=== PATIENT | female | born 1960 | race Caucasian/White ===

== ENCOUNTER 2017-12-26 15:25 | Emergency (ER) | payer OTHER, SELFPAY ==
[2017-12-26 15:30] VITALS: BP 136/74; PULSE 69; RESP 16; TEMP 36.5; O2SAT 100
--- NOTE | 2017-12-26 17:26 | W.ED.GENAD ---
Discharge Plan Disposition Patient Disposition: HOME Condition: Good Discharge Details Chief Complaint: Orthopedic Clinical Impression: Muscle strain of left shoulder Primary Care Provider: Iraj Moura ED Provider: Edil Grimes Home Meds and New Rx's Prescriptions: New ibuprofen [IBU] 600 mg tablet 600 mg PO QID PRN (Reason: pain) Qty: 20 RF: 0 cyclobenzaprine 5 mg tablet 5 mg PO TID PRN (Reason: muscle spasm) Qty: 10 RF: 0 Discontinued ibuprofen [Advil Liqui-Gel] 200 MG capsule 400 mg PO PRN PRNRF: 0 No Action levothyroxine [Synthroid] 125 MCG tablet 125 mcg PO HS RF: 0 Discharge Instructions Instructions: Muscle Strain (ED), RICE Therapy (ED) Additional Instructions: Feel free to return the emergency department for any new or worsening symptoms otherwise perform gentle range of motion activities over the weekend, use medication as prescribed, and slowly advance activity as tolerated. If not improving over the next 2 weeks please follow-up with orthopedist for reassessment Referrals: Asaf Jacobson MD [ [facility] STAFF PHYSICIAN] - Vamshi Jacob MD [ [facility] STAFF PHYSICIAN] - Kel Noriega MD [ [facility] STAFF PHYSICIAN] - Discharge Data Discharge Date/Time-TO BE ENTERED AT DEPARTURE: 12/26/17 17:43 Medical Decision Making Patient presenting to the emergency department for chief complaint of left shoulder pain. 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 She states that afterwards she had significant reduction of range of motion and painful range of motion of the left shoulder. Physical exam shows mild tenderness to the anterior aspect of the shoulder and upper chest wall and some active painful range of motion but passive range of motion is for the most part painless and only has some reduction in overhead abduction of the shoulder. I do not feel that patient requires any radiological imaging at this time and highly suspicious of the shoulder strain. Patient was placed upon Flexeril for any muscular spasms that she may have and ibuprofen and encouraged to rest over the next couple days and slowly advance activity as tolerated. Patient was encouraged to continue to do gentle range of motion activities. After discussion of diagnosis and plan of care patient has no further needs, questions, or concerns and states clear understanding to return to the emergency department for any worsening symptoms. HPI General Mode of arrival: ambulatory. Date/Time Provider Initiated Documentation: 12/26/17 15:49. Limitations to Documentation: no limitations. Information obtained by: patient and RN notes reviewed. History of Present Illness 57 year old F presents to the emergency department with the chief complaint of left arm, described as moderate, with intensity rated at 8. Quality is described as aching, and is localized to the left and upper extremity. Patient started experiencing this hour(s) (3) and it has been constant. No relieving factors improve symptom(s), Movement worsens symptoms . Patient notes no other symptoms.. Patient did receive the following treatments prior to arrival, NSAID Related Data Home Medications Medication Instructions Recorded Confirmed levothyroxine [Synthroid] 125 mcg PO HS tab-cap 06/25/16 12/26/17 cyclobenzaprine 5 mg PO TID PRN #10 tab 12/26/17 ibuprofen [IBU] 600 mg PO QID PRN #20 tab 12/26/17 Previous Rx's Medication Instructions Recorded cyclobenzaprine 5 mg PO TID PRN #10 tab 12/26/17 ibuprofen [IBU] 600 mg PO QID PRN #20 tab 12/26/17 Allergies Allergy/AdvReac Type Severity Reaction Status Date / Time No Known Drug Allergies Allergy Unverified 12/26/17 15:34 General Stated Complaint: Orthopedic STEPHEN: 4 Review of Systems Cardiovascular Denies chest pain and Denies dyspnea Respiratory Denies dyspnea Musculoskeletal Reports as per HPI, Reports myalgias and Reports arthralgias Integumentary/Breasts Denies rash Neurologic Denies sensory deficit PFS Social History Smoking/Tobacco Use Status: Former Tobacco Use Surgical History Cholecystectomy Exam Const General: cooperative, healthy appearing and no acute distress Orientation: alert, awake and oriented x3 Resp Effort & Inspection: normal respiratory effort and able to speak in complete sentences Cardio Rate: regular rate Rhythm: regular rhythm Extrem General: normal exam except as noted Left upper extremity: full ROM, normal capillary refill, shoulder/upper arm Details: tenderness Location: other (Anterior soft tissue) and abnormal ROM Details: pain with active ROM Details: in ABduction and in extension and with range as follows (Full); no pain with passive ROM, elbow/forearm Details: normal to inspection, wrist Details: normal to inspection and hand Details: normal to inspection; no edema and joint enlargement noted Course Vital Signs Temperature 36.5 C 12/26/17 15:30 Pulse 69 12/26/17 15:30 Respiratory Rate 16 12/26/17 15:30 Blood Pressure 136/74 12/26/17 15:30 Pulse Oximetry 100 12/26/17 15:30 Temperature 36.5 C 12/26/17 15:30 Temperature Source Skin 12/26/17 15:30 Pulse 69 12/26/17 15:30 Respiratory Rate 16 12/26/17 15:30 Respiratory Effort Non-Labored 12/26/17 15:33 Blood Pressure 136/74 12/26/17 15:30 Pulse Oximetry 100 12/26/17 15:30 Pain Level 8 12/26/17 15:30
--- NOTE | 2017-12-26 17:29 | ED.GENADUL_ITS ---
Discharge Plan Disposition Patient Disposition: HOME Condition: Good Discharge Details Chief Complaint: Orthopedic Clinical Impression: Muscle strain of left shoulder Primary Care Provider: Iraj Moura ED Provider: Edil Grimes Home Meds and New Rx's Prescriptions: New ibuprofen [IBU] 600 mg tablet 600 mg PO QID PRN (Reason: pain) Qty: 20 RF: 0 cyclobenzaprine 5 mg tablet 5 mg PO TID PRN (Reason: muscle spasm) Qty: 10 RF: 0 Discontinued ibuprofen [Advil Liqui-Gel] 200 MG capsule 400 mg PO PRN PRNRF: 0 No Action levothyroxine [Synthroid] 125 MCG tablet 125 mcg PO HS RF: 0 Discharge Instructions Instructions: Muscle Strain (ED), RICE Therapy (ED) Additional Instructions: Feel free to return the emergency department for any new or worsening symptoms otherwise perform gentle range of motion activities over the weekend, use medication as prescribed, and slowly advance activity as tolerated. If not improving over the next 2 weeks please follow-up with orthopedist for reassessment Referrals: Asaf Jacobson MD [ [facility] STAFF PHYSICIAN] - Vamshi Jacob MD [ [facility] STAFF PHYSICIAN] - Kel Noriega MD [ [facility] STAFF PHYSICIAN] - Discharge Data Discharge Date/Time-TO BE ENTERED AT DEPARTURE: 12/26/17 17:43 Medical Decision Making Patient presenting to the emergency department for chief complaint of left shoulder pain. 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 She states that afterwards she had significant reduction of range of motion and painful range of motion of the left shoulder. Physical exam shows mild tenderness to the anterior aspect of the shoulder and upper chest wall and some active painful range of motion but passive range of motion is for the most part painless and only has some reduction in overhead abduction of the shoulder. I do not feel that patient requires any radiological imaging at this time and highly suspicious of the shoulder strain. Patient was placed upon Flexeril for any muscular spasms that she may have and ibuprofen and encouraged to rest over the next couple days and slowly advance activity as tolerated. Patient was encouraged to continue to do gentle range of motion activities. After discussion of diagnosis and plan of care patient has no further needs, questions , or concerns and states clear understanding to return to the emergency department for any worsening symptoms. HPI General Mode of arrival: ambulatory . Date/Time Provider Initiated Documentation: 12/26/17 15:49 . Limitations to Documentation: no limitations . Information obtained by: patient and RN notes reviewed . History of Present Illness 57 year old F presents to the emergency department with the chief complaint of left arm, described as moderate, with intensity rated at 8. Quality is described as aching, and is localized to the left and upper extremity. Patient started experiencing this hour(s) (3) and it has been constant. No relieving factors improve symptom(s), Movement worsens symptoms . Patient notes no other symptoms.. Patient did receive the following treatments prior to arrival, NSAID Related Data Home Medications Medication Instructions Recorded Confirmed levothyroxine [Synthroid] 125 mcg PO HS tab-cap 06/25/16 12/26/17 cyclobenzaprine 5 mg PO TID PRN #10 tab 12/26/17 ibuprofen [IBU] 600 mg PO QID PRN #20 tab 12/26/17 Previous Rx's Medication Instructions Recorded cyclobenzaprine 5 mg PO TID PRN #10 tab 12/26/17 ibuprofen [IBU] 600 mg PO QID PRN #20 tab 12/26/17 Allergies Allergy/AdvReac Type Severity Reaction Status Date / Time No Known Drug Allergies Allergy Unverified 12/26/17 15:34 General Stated Complaint: Orthopedic STEPHEN: 4 Review of Systems Cardiovascular Denies chest pain and Denies dyspnea Respiratory Denies dyspnea Musculoskeletal Reports as per HPI, Reports myalgias and Reports arthralgias Integumentary/Breasts Denies rash Neurologic Denies sensory deficit PFS Social History Smoking/Tobacco Use Status: Former Tobacco Use Surgical History Cholecystectomy Exam Const General: cooperative, healthy appearing and no acute distress Orientation: alert, awake and oriented x3 Resp Effort & Inspection: normal respiratory effort and able to speak in complete sentences Cardio Rate: regular rate Rhythm: regular rhythm Extrem General: normal exam except as noted Left upper extremity: full ROM, normal capillary refill, shoulder/upper arm Details: tenderness Location: other (Anterior soft tissue) and abnormal ROM Details: pain with active ROM Details: in ABduction and in extension and with range as follows (Full); no pain with passive ROM, elbow/forearm Details: normal to inspection, wrist Details: normal to inspection and hand Details: normal to inspection; no edema and joint enlargement noted Course Vital Signs Temperature 36.5 C 12/26/17 15:30 Pulse 69 12/26/17 15:30 Respiratory Rate 16 12/26/17 15:30 Blood Pressure 136/74 12/26/17 15:30 Pulse Oximetry 100 12/26/17 15:30 Temperature 36.5 C 12/26/17 15:30 Temperature Source Skin 12/26/17 15:30 Pulse 69 12/26/17 15:30 Respiratory Rate 16 12/26/17 15:30 Respiratory Effort Non-Labored 12/26/17 15:33 Blood Pressure 136/74 12/26/17 15:30 Pulse Oximetry 100 12/26/17 15:30 Pain Level 8 12/26/17 15:30
== END 2017-12-26 17:43 | disposition home or self-care (01) ==
LOC: ER 17:41
PROVIDERS: Emergency Provider Nurse Practitioner Family; PCP Internal Medicine
DX: S46.012A Strain of muscle(s) and tendon(s) of the rotator cuff of left shoulder, initial encounter (principal); X58.XXXA Exposure to other specified factors, initial encounter
CPT/HCPCS: 99283

== ENCOUNTER 2018-02-27 18:16 | Outpatient (REF) | payer OTHER, SELFPAY ==
[2018-02-27 19:21] LABS: FREE T4 0.76 ng/dL (0.76-1.46); TSH 2.09 uIU/mL (0.358-3.74)
== END 2018-02-27 18:36 ==
LOC: NCHCN 18:16
PROVIDERS: PCP Internal Medicine; Visit Provider Internal Medicine
DX: E03.9 Hypothyroidism, unspecified (principal)
CPT/HCPCS: 84439; 84443

== ENCOUNTER 2018-04-20 00:36 | Outpatient (CLI) | payer OTHER, SELFPAY ==
--- NOTE | 2018-04-20 08:42 | DI.MRI_ITS ---
SYMPTOM/DIAGNOSIS: LT SHOULDER STRAIN, PAIN, S/P FALL LEFT SHOULDER MRI: There are no plain films available for comparison. Proton density and fat suppressed T 2 axial and coronal and T 1 and fat suppressed T 2 sagittal sequences were performed. There is mild spurring at the AC joint with a question of mild impingement. There is mild spurring at the lesser tuberosity. No rotator cuff tendon tear or joint effusion is seen. No labral tear is visible. 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 No evidence of rotator cuff tear.
== END 2018-04-20 00:56 ==
PROVIDERS: PCP Internal Medicine; Visit Provider Nurse Practitioner Family
DX: M25.512 Pain in left shoulder (principal); M19.012 Primary osteoarthritis, left shoulder
CPT/HCPCS: 73221

== ENCOUNTER 2018-12-15 13:16 | Emergency (ER) | payer OTHER, SELFPAY ==
[2018-12-15 13:19] VITALS: BP 152/89; PULSE 74; RESP 16; TEMP 36.6; O2SAT 98
--- NOTE | 2018-12-15 13:30 | ED.GENADUL_ITS ---
Discharge Plan Disposition Patient Disposition: HOME Condition: Stable Discharge Details Chief Complaint: Orthopedic Clinical Impression: Strain of left knee Primary Care Provider: Iraj Moura ED Provider: Joe Tyler Home Meds and New Rx's Prescriptions: Continued levothyroxine [Synthroid] 125 MCG tablet 125 mcg PO HS RF: 0 ibuprofen [IBU] 600 mg tablet 600 mg PO QID PRN (Reason: pain) Qty: 20 RF: 0 Hold Instructions: Home Medication placed on hold at Doctor's office Discharge Instructions Instructions: Knee Sprain (ED) Additional Instructions: If pain continues in one week follow up with orthopedics if you develop severe worsening pain or fevers return to the emergency department Medical Decision Making 58 yo female comes in with left knee pain. She states she was cleaning under a table and stood up and felt a pain on lateral knee. Denies fall or other trauma. She has no swelling of the knee and has full rom with intact sensation and 5/5 strength in flexion and extension and normal distal pulses. Has pain over lateral joint line, no laxity of the joint. Given mechanism and exam findings suspect strain vs possible meniscus injury. No findings to suggest ligament tear. Do not feel xrays indicated as no trauma. She already has knee brace and advised to f/u with ortho if pain continues in a week Differential Diagnosis Differential Diagnosis: sprain, strain, meniscus injury HPI General Mode of arrival: ambulatory . Date/Time Provider Initiated Documentation: 12/15/18 13:21 . Limitations to Documentation: no limitations . Information obtained by: patient . History of Present Illness 58 year old F presents to the emergency department with the chief complaint of left knee pain, and is localized to the left and lower extremity. and it has been constant. Rest improves symptom(s), Other factors that worsen symptoms (walking) . Related Data Home Medications Medication Instructions Recorded Confirmed levothyroxine [Synthroid] 125 mcg PO HS tab-cap 06/25/16 12/15/18 ibuprofen [IBU] 600 mg PO QID PRN #20 tab 12/26/17 12/15/18 Previous Rx's Medication Instructions Recorded ibuprofen [IBU] 600 mg PO QID PRN #20 tab 12/26/17 Allergies Allergy/AdvReac Type Severity Reaction Status Date / Time No Known Drug Allergies Allergy Unverified 12/15/18 13:23 General Stated Complaint: Orthopedic STEPHEN: 4 Review of Systems Review of Systems ROS Unobtainable: All systems reviewed & are unremarkable except as noted in HPI and below Musculoskeletal Musculoskeletal: Denies joint swelling Integumentary/Breasts Skin/Breast: Denies rash PFSH Social History Smoking/Tobacco Use Status: Former Tobacco Use Drug use: Never Household members: spouse current occupation: RN What is your relationship status?: Panel score (0-1 are the most socially isolated patients): 1 Do you feel safe in your relationship?: Yes Exam Const General: no acute distress Orientation: alert HENMT Head: normal to inspection Ears: external ears normal General nose exam: external nose normal Mouth: moist mucous membranes Eyes General: appearance normal, both eyes and all related structures Neck Neck: normal visual inspection Resp Effort & Inspection: normal respiratory effort and able to speak in complete sentences Cardio Rate: regular rate Skin General skin exam: no rashes or lesions noted Neuro General: alert and oriented x3 Extrem General: full ROM and normal capillary refill Psych Mental Status: mental status grossly normal Course Vital Signs Vital signs: Vital Signs Temperature 36.6 C 12/15/18 13:19 Pulse 74 12/15/18 13:19 Respiratory Rate 16 12/15/18 13:19 Blood Pressure 152/89 H 12/15/18 13:19 Pulse Oximetry 98 12/15/18 13:19 Temperature 36.6 C 12/15/18 13:19 Pulse 74 12/15/18 13:19 Respiratory Rate 16 12/15/18 13:19 Respiratory Effort 12/15/18 13:24 Blood Pressure 152/89 H 12/15/18 13:19 Blood Pressure Position Supine 12/15/18 13:19 Pulse Oximetry 98 12/15/18 13:19 Oxygen Delivery Method Room Air 12/15/18 13:19 Oxygen Flow Rate 0 12/15/18 13:19 Pain Level 5 12/15/18 13:19
== END 2018-12-15 13:50 | disposition home or self-care (01) ==
PROVIDERS: Emergency Provider Emergency Medicine; PCP Internal Medicine
DX: S86.912A Strain of unspecified muscle(s) and tendon(s) at lower leg level, left leg, initial encounter (principal); X50.1XXA Overexertion from prolonged static or awkward postures, initial encounter
CPT/HCPCS: 99282

== ENCOUNTER 2019-07-26 11:09 | Outpatient (REF) | payer OTHER, SELFPAY ==
[2019-07-26 19:43] LABS: Calculated LDL 157 mg/dL (<100); Cholesterol 250 mg/dL (<200); HDL Cholesterol 80 mg/dL (40-60); TSH 0.86 uIU/mL (0.36-3.74); Triglyceride 69 mg/dL (<150)
[2019-07-26 20:04] LABS: FREE T4 0.83 ng/dL (0.76-1.46)
== END 2019-07-26 11:29 ==
LOC: NCHCN 11:09
PROVIDERS: PCP Internal Medicine; Visit Provider Internal Medicine
DX: E03.9 Hypothyroidism, unspecified (principal); Z13.220 Encounter for screening for lipoid disorders
CPT/HCPCS: 80061; 84439; 84443

== ENCOUNTER 2020-04-17 16:35 | Outpatient (REF) | payer OTHER, SELFPAY ==
[2020-04-17 19:26] LABS: Glucose 92 mg/dL (74-106)
[2020-04-17 20:05] LABS: Vitamin B12 291 pg/mL (193-986)
== END 2020-04-17 16:36 | disposition home or self-care (01) ==
LOC: NCHCN 16:35
PROVIDERS: PCP Internal Medicine; Visit Provider Internal Medicine
DX: G57.60 Lesion of plantar nerve, unspecified lower limb (principal)
CPT/HCPCS: 82947; 82607

== ENCOUNTER 2020-07-21 20:37 | Outpatient (REF) | payer OTHER, SELFPAY ==
[2020-07-21 19:28] LABS: HCT 42.8 % (36.0-46.0); HGB 14.4 g/dL (11.2-15.7); MCH 30.6 pg (27.0-33.0); MCHC 33.6 % (32.0-36.0); MCV 91.1 fL (80-95); MPV 9.6 fL (8.0-11.0); Platelet Count 259 10^3/uL (130-400); RDW 12.9 % (11.7-14.6); RDW-SD 43.1 fL; WBC 4.96 10^3/uL (4.4-10.8)
[2020-07-21 19:54] LABS: ALT 31 U/L (14-59); AST 22 U/L (15-37); Albumin 4.1 g/dL (3.4-5.0); Alkaline Phosphatase 120 U/L (46-116); Anion Gap 7.8 mmol/L (3-11); BUN 13 mg/dL (7-18); Bilirubin, Total 0.7 mg/dL (0.2-1.0); CO2 28.2 mmol/L (21.0-32.0); Calcium 9.1 mg/dL (8.5-10.1); Chloride 106 mmol/L (98-107); Estimated GFR 56.56 (mL/min/1.73m2); Glucose 78 mg/dL (74-106); Sodium 142 mmol/L (136-145); Total Protein 7.3 g/dL (6.4-8.2); Vitamin B12 239 pg/mL (193-986)
== END 2020-07-21 20:38 | disposition home or self-care (01) ==
LOC: NCHCN 20:37
PROVIDERS: PCP Internal Medicine; Visit Provider Internal Medicine
DX: Z00.00 Encounter for general adult medical examination without abnormal findings (principal); E03.9 Hypothyroidism, unspecified
CPT/HCPCS: 80053; 85027; 82607

== ENCOUNTER 2020-08-02 16:17 | Outpatient (REF) | payer OTHER, SELFPAY ==
[2020-08-02 20:37] LABS: TSH 125.73 uIU/mL (0.36-3.74)
[2020-08-08 16:06] LABS: Methylmalonic Acid 0.23 nmol/mL (<=0.40)
== END 2020-08-02 16:18 | disposition home or self-care (01) ==
LOC: NCHCN 16:17
PROVIDERS: PCP Internal Medicine; Visit Provider Internal Medicine
DX: G30.9 Alzheimer's disease, unspecified (principal); E03.9 Hypothyroidism, unspecified; E53.8 Deficiency of other specified B group vitamins; Z51.81 Encounter for therapeutic drug level monitoring
CPT/HCPCS: 80186; 84439; 84443

== ENCOUNTER 2020-09-14 09:45 | Outpatient (REF) | payer OTHER, SELFPAY ==
[2020-09-14 19:19] LABS: TSH 0.28 uIU/mL (0.36-3.74)
== END 2020-09-14 09:46 | disposition home or self-care (01) ==
LOC: NCHCN 09:45
PROVIDERS: PCP Internal Medicine; Visit Provider Internal Medicine
DX: E03.9 Hypothyroidism, unspecified (principal)
CPT/HCPCS: 84443

== ENCOUNTER 2020-11-28 14:15 | Outpatient (REF) | payer OTHER, SELFPAY ==
[2020-11-28 20:44] LABS: FREE T4 0.97 ng/dL (0.76-1.46)
== END 2020-11-28 14:16 | disposition home or self-care (01) ==
LOC: NCHCN 14:15
PROVIDERS: PCP Internal Medicine; Visit Provider Internal Medicine
DX: E03.9 Hypothyroidism, unspecified (principal)
CPT/HCPCS: 84439; 84443

== ENCOUNTER 2022-01-03 18:28 | Outpatient (REF) | payer OTHER, SELFPAY ==
[2022-01-03 19:19] LABS: FREE T4 0.99 ng/dL (0.76-1.46); TSH 0.03 uIU/mL (0.36-3.74)
== END 2022-01-03 18:29 | disposition home or self-care (01) ==
LOC: NCHCN 18:28
PROVIDERS: PCP Internal Medicine; Visit Provider Internal Medicine
DX: E03.9 Hypothyroidism, unspecified (principal)
CPT/HCPCS: 84439; 84443

== ENCOUNTER 2022-03-12 10:34 | Outpatient (REF) | payer OTHER, SELFPAY ==
[2022-03-12 20:19] LABS: TSH 67.71 uIU/mL (0.36-3.74)
== END 2022-03-12 10:35 | disposition home or self-care (01) ==
LOC: NCHCN 10:34
PROVIDERS: PCP Internal Medicine; Visit Provider Internal Medicine
DX: E03.9 Hypothyroidism, unspecified (principal)
CPT/HCPCS: 84443

== ENCOUNTER 2022-07-04 14:44 | Outpatient (REF) | payer OTHER, SELFPAY ==
[2022-07-04 18:44] LABS: ESR 2 mm/hr (0-30)
[2022-07-04 19:06] LABS: C-Reactive Protein 0.05 mg/dL (0.0-0.3); FREE T4 1.04 ng/dL (0.76-1.46); TSH 0.02 uIU/mL (0.36-3.74)
== END 2022-07-04 14:45 | disposition home or self-care (01) ==
LOC: NCHCN 14:44
PROVIDERS: PCP Internal Medicine; Visit Provider Internal Medicine
DX: E03.9 Hypothyroidism, unspecified (principal); R51.9 Headache, unspecified
CPT/HCPCS: 85652; 84439; 84443; 86140

== ENCOUNTER 2023-01-02 11:51 | Outpatient (REF) | payer OTHER, SELFPAY ==
--- NOTE | 2023-01-02 10:30 | PAPFT_PTH ---
PATIENT: Elvie Menendez LOC: [facility]#:[id number] AGE/SX: 62/F ROOM: RE01/02/[address]: Iraj Moura : 1960 BED: DIS: 01/02/2023 SPEC #: [id number] RECD: 01/03/23 12:59 STATUS: ELIANA REQ #: [id number] MITZY: 01/02/23 10:[address]: Iraj Moura DEPT: [facility] Cytology RECD BY: Jazmin Madrid Tissues: 1 - CX/ENDOCX FOR PAP SMEARS Procedures: PAP THIN PREP/U[facility] Screening HPV DNA PROBE Comments: [id number]
== END 2023-01-02 11:52 | disposition home or self-care (01) ==
LOC: NCHCN 11:51
PROVIDERS: PCP Internal Medicine; Visit Provider Internal Medicine
DX: Z12.4 Encounter for screening for malignant neoplasm of cervix (principal); Z01.419 Encounter for gynecological examination (general) (routine) without abnormal findings
CPT/HCPCS: 88142; 87624

== ENCOUNTER 2023-07-02 13:05 | Outpatient (REF) | payer OTHER, SELFPAY ==
[2023-07-02 20:28] LABS: FREE T4 0.88 ng/dL (0.76-1.46); TSH 0.02 uIU/Ml (0.36-3.74)
== END 2023-07-02 13:06 | disposition home or self-care (01) ==
LOC: NCHCN 13:05
PROVIDERS: PCP Internal Medicine; Visit Provider Internal Medicine
DX: E03.9 Hypothyroidism, unspecified (principal)
CPT/HCPCS: 84439; 84443

== ENCOUNTER 2023-08-14 08:52 | Outpatient (REF) | payer OTHER, SELFPAY ==
--- OUTSIDE RECORDS SUMMARY | 2023-08-14 08:54 | XMS_ITS | Continuity of Care Document ---
Author Name Unknown Organization [facility] Address [address] [place] [address] Care Team Providers Care B2B Outside Sales Representative Name Role Phone Iraj Levin Primary Care Physician Encounter REPLACED BY [facility] Date(s): 06/24/23 - 06/25/[address] [address] Encounter Diagnosis Chest pain(Discharge Diagnosis) - 06/24/23 Discharge Disposition: Home or Self Care Attending Physician: Nathan Torrez MD Admitting Physician: Nathan Torrez MD Allergies, Adverse Reactions, Alerts No Known Medication Allergies Assessment and Plan Extracted from: Title:ED Provider Note Author:Nathan Torrez MD D ate:06/25/23 Assessment/Plan 1.??Chest pain??R07.9 Ordered: Discharge Patient, 06/25/23 0:26:00 EDT, Home Independently, Constant Indicator ?? Patient Education Nonspecific Chest Pain, Adult, [id number]-Hlxq Follow Up With When Contact Information Iraj Levin MD Within 1 to [address] [phone] [phone] ?? Additional Instructions: Immunizations Given and Recorded Vaccine Date Status Refusal Reason SARS-CoV-2 (COVID-19) mRNA-1273 vaccine 01/08/21 R ecorded SARS-CoV-2 (COVID-19) mRNA-1273 vaccine 03/20/20 R ecorded SARS-CoV-2 (COVID-19) mRNA-1273 vaccine 02/21/20 R ecorded influenza virus vaccine, inactivated 11/24/09 Marcel rded tetanus/diphth/pertuss (Tdap) adult/adol 02/24/09 Recorded measles/mumps/rubella virus vaccine 02/24/07 Recor ded varicella virus vaccine 02/24/07 Recorded hepatitis B adult vaccine 02/24/07 Recorded Problem List No Known Problems Results Laboratory List Name Date Troponin-I 06/24/23 Troponin-I 06/24/23 CBC w/ Diff 06/24/23 Comprehensive Metabolic Panel 06/24/23 NT- Pro BNP 06/24/23 Troponin-I 06/24/23 Automated Diff 06/24/23 Most recent to oldest [Reference Range]: 1 2 3 WBC [5.0-10.0 x10^3/mcL] 7.8 x10^3/mcL (06/24/23 8:48 PM) RBC [4.1-5.3 x10^6/mcL] 4.9 x10^6/mcL (06/24/23 8:48 PM) Neutro Auto [40.0-75.0 %] 56.6 % (06/24/23 8:48 PM) Lymph Auto [20.0-50.0 %] 33.8 % (06/24/23 8:48 PM) Hendry Auto [2.0-15.0 %] 7.5 % (06/24/23 8:48 PM) Basophil Auto [0.0-1.0 %] 0.4 % (06/24/23 8:48 PM) BUN [7-18 mg/dL] 16 mg/dL (06/24/23 8:48 PM) Glucose Level [74-106 mg/dL] 155 mg/dL *HI* (06/24/23 8:48 PM) Potassium Level [3.5-5.1 mmol/L] 3.4 mmol/L *LOW* (06/24/23 8:48 PM) MCV [80.0-96.0 fL] 86.1 fL (06/24/23 8:48 PM) AST [15-37 unit/L] 19 unit/L (06/24/23 8:48 PM) ALT [14-59 unit/L] 25 unit/L (06/24/23 8:48 PM) MCHC [31.0-35.0 g/dL] 35.4 g/dL *HI* (06/24/23 8:48 PM) Troponin-I [0.0-51.4 pg/mL] 30.7 pg/mL (06/24/23 11:48 PM) 15.7 pg/mL (06/24/23 10:00 PM) <5.0 pg/mL (06/24/23 8:48 PM) Sodium Level [136-145 mmol/L] 139 mmol/L (06/24/23 8:48 PM) Hct [37.0-47.0 %] 42.1 % (06/24/23 8:48 PM) Calcium Level [8.5-10.1 mg/dL] 9.3 mg/dL (06/24/23 8:48 PM) Albumin Level [3.4-5.0 g/dL] 3.5 g/dL (06/24/23 8:48 PM) Protein Total [6.4-8.2 g/dL] 6.9 g/dL (06/24/23 8:48 PM) MCH [26.0-32.0 pg] 30.5 pg (06/24/23 8:48 PM) Neutro Absolute 4.4 x10^3/mcL *NA* (06/24/23 8:48 PM) Bilirubin Total [0.2-1.0 mg/dL] 0.7 mg/dL (06/24/23 8:48 PM) Hgb [12.0-16.0 g/dL] 14.9 g/dL (06/24/23 8:48 PM) Alk Phos [46-146 unit/L] 153 unit/L *HI* (06/24/23 8:48 PM) Platelets [130-450 x10^3/mcL] 254 x10^3/mcL (06/24/23 8:48 PM) CO2 [21-32 mmol/L] 18 mmol/L *LOW* (06/24/23 8:48 PM) eGFR Non-AA [>=60] 56 *LOW* (06/24/23 8:48 PM) eGFR AA [>=60] 56 *LOW* (06/24/23 8:48 PM) NT-proBNP [0-125 pg/mL] 72 pg/mL (06/24/23 8:48 PM) Chloride Level [98-107 mmol/L] 104 mmol/L (06/24/23 8:48 PM) RDW-CV [11.5-14.5 %] 11.9 % (06/24/23 8:48 PM) Imm Gran Auto [0.0-0.9 %] 0.4 % (06/24/23 8:48 PM) Slide Review Not Indicated (06/24/23 8:48 PM) Creatinine Level [0.55-1.02 mg/dL] 1.11 mg/dL *HI* (06/24/23 8:48 PM) Eos, Auto [1.0-6.0 %] 1.3 % (06/24/23 8:48 PM) Vital Signs Most recent to oldest [Reference Range]: 1 2 3 Temperature Temporal Artery [36-38 Deg C] 36.2 Deg C (06/24/23 8:29 PM) Peripheral Pulse Rate [60-100 bpm] 70 bpm (06/25/23 12:07 AM) 66 bpm (06/24/23 11:25 PM) 63 bpm (06/24/23 10:34 PM) Heart Rate Monitored [60-100 bpm] 92 bpm (06/25/23 12:32 AM) 63 bpm (06/24/23 10:34 PM) 65 bpm (06/24/23 10:00 PM) Respiratory Rate [12-24 br/min] 24 br/min (06/25/23 12:32 AM) 25 br/min *HI* (06/25/23 12:07 AM) 19 br/min (06/24/23 11:25 PM) Blood Pressure [90-140/60-90 mmHg] 148/84mmHg *HI* (06/25/23 12:07 AM) 129/85mmHg (06/24/23 11:25 PM) 149/83mmHg *HI* (06/24/23 10:34 PM) Mean Arterial Pressure, Cuff [65-140 mmHg] 105 mmHg (06/25/23 12:07 AM) 105 mmHg (06/24/23 10:34 PM) 108 mmHg (06/24/23 10:00 PM) Weight 72.3 kg (06/25/23 12:40 AM) 72.3 kg (06/24/23 8:29 PM) Weight Dosing 72.300 kg (06/24/23 8:29 PM) Social History Social History Type Response Tobacco Never tobacco user T obacco Use:. Sex Female Hospital Discharge Instructions Patient Education 06/24/2023 23:26:45 Nonspecific Chest Pain, Adult, Lglg-wq-Rclw Nonspecific Chest Pain Chest pain can be caused by many different conditions. Some causes of chest pain can be life-threatening. These will require treatment right away. Serious causes of chest pain include: ??? Heart attack. ??? A tear in the body's main blood vessel. ??? Redness and swelling (inflammation) around your heart. ??? Blood clot in your lungs. Other causes of chest pain may not be so serious. These include: ??? Heartburn. ??? Anxiety or stress. ??? Damage to bones or muscles in your chest. ??? Lung infections. Chest pain can feel like: ??? Pain or discomfort in your chest. ??? Crushing, pressure, aching, or squeezing pain. ??? Burning or tingling. ??? Dull or sharp pain that is worse when you move, cough, or take a deep breath. ??? Pain or discomfort that is also felt in your back, neck, jaw, shoulder, or arm, or pain that spreads to any of these areas. It is hard to know whether your pain is caused by something that is serious or something that is not so serious. So it is important to see your doctor right away if you have chest pain. Follow these instructions at home: Medicines ??? Take zpeg-ing-gbakrxh and prescription medicines only as told by your doctor. ??? If you were prescribed an antibiotic medicine, take it as told by your doctor. Do not stop taking the antibiotic even if you start to feel better. Lifestyle ??? Rest as told by your doctor. ??? Do not use any products that contain nicotine or tobacco, such as cigarettes, e-cigarettes, andchewing tobacco. If you need help quitting, ask your doctor. ??? Do not drink alcohol. ??? Make lifestyle changes as told by your doctor. These may include: ??? Getting regular exercise. Ask your doctor what activities are safe for you. ??? Eating a heart-healthy diet. A diet and learning development specialist (dietitian) can help you to learn healthy eating options. ??? Staying at a healthy weight. ??? Treating diabetes or high blood pressure, if needed. ??? Lowering your stress. Activities such as yoga and relaxation techniques can help. General instructions ??? Pay attention to any changes in your symptoms. Tell your doctor about them or any new symptoms. ??? Avoid any activities that cause chest pain. ??? Keep all follow-up visits as told by your doctor. This is important. You may need more testing if your chest pain does not go away. Contact a doctor if: ??? Your chest pain does not go away. ??? You feel depressed. ??? You have a fever. Get help right away if: ??? Your chest pain is worse. ??? You have a cough that gets worse, or you cough up blood. ??? You have very bad (severe) pain in your belly (abdomen). ??? You pass out (faint). ??? You have either of these for no clear reason: ??? Sudden chest discomfort. ??? Sudden discomfort in your arms, back, neck, or jaw. ??? You have shortness of breath at any time. ??? You suddenly start to sweat, or your skin gets clammy. ??? You feel sick to your stomach (nauseous). ??? You throw up (vomit). ??? You suddenly feel lightheaded or dizzy. ??? You feel very weak or tired. ??? Your heart starts to beat fast, or it feels like it is skipping beats. These symptoms may be an emergency. Do not wait to see if the symptoms will go away. Get medical help right away. Call your local emergency services (911 in the [place] Do not drive yourself to the hospital. Summary ??? Chest pain can be caused by many different conditions. The cause may be serious and need treatment right away. If you have chest pain, see your doctor right away. ??? Follow your doctor's instructions for taking medicines and making lifestyle changes. ??? Keep all follow-up visits as told by your doctor. This includes visits for any further testing if your chest pain does not go away. ??? Be sure to know the signs that show that your condition has become worse. Get help right away if you have these symptoms. This information is not intended to replace advice given to you by your health care provider. Make sure you discuss any questions you have with your health care provider. Document Revised: 04/24/2021 Document Reviewed: 04/26/2021 Elsevier Patient Education ?? 2022 [employer] Follow Up Care 06/24/2023 20:27:22 With:Iraj Levin MD Address: [address] [phone] When:1 to 2 weeks Physician Emergency department Note * Nathan Torrez MD: PERFORM Event Display: ED Note Physician Authored Date: [id number] TALISHA VILLASENOR :1960 Age:63 years Sex:Female Visit Date:06/24/2023 Primary Care Physician: Iraj Levin MD Basic Information Time Seen: Nathan Torrez MD / 06/24/2023 20:30 Chief Complaint BIBEMS pt complaining of chest pain numbness and tingling bilat upper ext. with ems pt hyperventilating. ems ekg NSR. pt denies chest pain sob numbness tingling at this time History Of Present Illness: Patient is a 63-year-old female??history of Alzheimer's dementia??presenting with chest discomfort.?Patient states that she was??at home doing nothing particular when she was sitting about her mother and how she was several states away. ??She became extremely worried about her and suddenly develo ped??chest??pressure.?She states??she began hyperventilating and noted cramping in her fingers and toes as well.? came concerned and drove to the rescue station who brought her here. ??Patient states that she is completely pain-free at this time. Review of Systems: ROS as per HPI Physical Exam Vitals & Measurements T:??36.2?C ??(Temporal Artery)?? HR:??92??(Monitored)?? RR:??24?? BP:??148/84?? SpO2:??100%?? WT:??72.3??kg?? Pain Score:??0?? O2 Therapy:??Room air?? General: Anxitous appearing elderly female Eye: PERRL, EOMI, ??Normal ??conjunctiva HENT: Normocephalic, atraumatic Neck: Supple, non-tender, ?? Lungs: Clear to auscultation bilaterally, satting well on room air, no respiratory distress Heart: ??Normal ?? rate, ??Regular rhythm, ??No murmur Abdomen: Soft, non-tender, non-distended, ??Normal ??bowel sounds Musculoskeletal: ??Normal range of motion and strength, ??No tenderness, ?? Skin: Skin is warm and dry Neurologic: Awake, alert Medical Decision Making: Patient is a 63-year-old female history of Alzheimer's presenting with??chest pressure. ??She is well-appearing here although appears slightly anxious??completely asymptomatic at this time. ??Initialtroponin did return at 5 I did repeat this and it returned at 15. ??Given the delta of 10 we??had her wait for a 3-hour troponin which returned at 30.?? Given??this is approximately 4 hours after onset of symptoms troponin is only 30??she remains asymptomatic while here after discussion with her and her she feels safe with discharge. ??Will give her strict return precautions. ??She understands agrees this plan Procedure No Qualifying Data Assessment/Plan 1.??Chest pain??R07.9 Ordered: Discharge Patient, 06/25/23 0:26:00 EDT, Home Independently, Constant Indicator ?? Patient Education Nonspecific Chest Pain, Adult, [id number]-[id number] Follow Up With When Contact Information [facility], Iraj Ryder MD Within 1 to [address] [address] [phone] Additional Instructions: Problem List/Past Medical History Ongoing No chronic problems Historical No qualifying data Allergies No Known Medication Allergies Social History Electronic Cigarette/Vaping Electronic Cigarette Use: Never. Tobacco Never tobacco user Tobacco Use:. Diagnostic Results ECG Sinus rhythm at a rate of 83 normal axis normal intervals no obvious acute ischemic changes noted Lab Results CBC and Differential?? LATEST RESULTS?? WBC?? 06/24/23 20:48?? 7.8?? RBC?? 06/24/23 20:48?? 4.9?? Hgb?? 06/24/23 20:48?? 14.9?? Hct?? 06/24/23 20:48?? 42.1?? MCV?? 06/24/23 20:48?? 86.1?? MCH?? 06/24/23 20:48?? 30.5?? MCHC?? 06/24/23 20:48?? 35.4 ??High?? RDW-CV?? 06/24/23 20:48?? 11.9?? Platelets?? 06/24/23 20:48?? 254?? Neutro Auto?? 06/24/23 20:48?? 56.6?? Lymph Auto?? 06/24/23 20:48?? 33.8?? Hendry Auto?? 06/24/23 20:48?? 7.5?? Eos, Auto?? 06/24/23 20:48?? 1.3?? Basophil Auto?? 06/24/23 20:48?? 0.4?? Imm Gran Auto?? 06/24/23 20:48?? 0.4?? Neutro Absolute?? 06/24/23 20:48?? 4.4?? Slide Review?? 06/24/23 20:48?? Not Indicated? Routine Chemistry?? LATEST RESULTS?? Sodium Level?? 06/24/23 20:48?? 139?? Potassium Level?? 06/24/23 20:48?? 3.4 ??Low?? Chloride Level?? 06/24/23 20:48?? 104?? CO2?? 06/24/23 20:48?? 18 ??Low?? Alk Phos?? 06/24/23 20:48?? 153 ??High?? AST?? 06/24/23 20:48?? 19?? ALT?? 06/24/23 20:48?? 25?? BUN?? 06/24/23 20:48?? 16?? Glucose Level?? 06/24/23 20:48?? 155 ??High?? Creatinine Level?? 06/24/23 20:48?? 1.11 ??High?? eGFR AA?? 06/24/23 20:48?? 56 ??Low?? eGFR Non-AA?? 06/24/23 20:48?? 56 ??Low?? Calcium Level?? 06/24/23 20:48?? 9.3?? Protein Total?? 06/24/23 20:48?? 6.9?? Albumin Level?? 06/24/23 20:48?? 3.5?? Bilirubin Total?? 06/24/23 20:48?? 0.7? Cardiac Isoenzymes?? LATEST RESULTS?? Troponin-I?? 06/24/23 23:48?? 30.7?? NT-proBNP?? 06/24/23 20:48?? 72? Electronically Signed on 06/25/23 01:57 AM Nathan Torrez MD * Nathan Torrez MD: PERFORM Event Display: ED Note Physician Authored Date: [id number] TALISHA VILLASENOR :1960 Age:63 years Sex:Female Visit Date:06/24/2023 Primary Care Physician: Iraj Levin MD Discharge Instructions We would like to thank you for allowing us to assist you with your healthcare needs. The following includes patient education materials and information regarding your injury/illness. Diagnosis from Today's Visit Chest pain Discharge Vitals Temperature??(Temporal Artery) 97.2 ??F (36.2 ??C) Heart Rate??(Peripheral) 70 Respiratory Rate?? 25 Blood Pressure?? 148/84?? SpO2?? 100% Weight?? 159.42 lb (72.3 kg) Allergies No Known Medication Allergies What to Do Next Instructions from Your Care Team Today you were seen in the emergency department for your chest pain. We did a thorough exam, labs and EKG as well as an x-ray. Your results did not show a medical emergency, because of this you can be discharged to follow up with your primary care physician as soon as you are able to. Please returnto the emergency department for any new or worsening symptoms. You Need to Schedule the Following Appointments Follow Up with??[facility], Iraj Ryder MD When:??Within 1 to 2 weeks Where: [address] [address] [phone] You were treated today on an emergency basis; it may be nichols to contact your primary care provider to notify them of your visit today. You may have been referred to your regular doctor or a specialist, please follow up as instructed. If your condition worsens or you can't get in to see the doctor, contact the Emergency Department. Education Materials Nonspecific Chest Pain Chest pain can be caused by many different conditions. Some causes of chest pain can be life-threatening. These will require treatment right away. Serious causes of chest pain include: ? Heart attack. ? A tear in the body's main blood vessel. ? Redness and swelling (inflammation) around your heart. ? Blood clot in your lungs. Other causes of chest pain may not be so serious. These include: ? Heartburn. ? Anxiety or stress. ? Damage to bones or muscles in your chest. ? Lung infections. Chest pain can feel like: ? Pain or discomfort in your chest. ? Crushing, pressure, aching, or squeezing pain. ? Burning or tingling. ? Dull or sharp pain that is worse when you move, cough, or take a deep breath. ? Pain or discomfort that is also felt in your back, neck, jaw, shoulder, or arm, or pain that spreads to any of these areas. It is hard to know whether your pain is caused by something that is serious or something that is not so serious. So it is important to see your doctor right away if you have chest pain. Follow these instructions at home: Medicines ? Take rlfy-guv-nmknmyq and prescription medicines only as told by your doctor. ? If you were prescribed an antibiotic medicine, take it as told by your doctor. Do not stop taking the antibiotic even if you start to feel better. Lifestyle ? Rest as told by your doctor. ? Do not use any products that contain nicotine or tobacco, such as cigarettes, e- cigarettes, and chewing tobacco. If you need help quitting, ask your doctor. ? Do not drink alcohol. ? Make lifestyle changes as told by your doctor. These may include: ? Getting regular exercise. Ask your doctor what activities are safe for you. ? Eating a heart-healthy diet. A diet and learning development specialist (dietitian) can help you to learn healthy eating options. ? Staying at a healthy weight. ? Treating diabetes or high blood pressure, if needed. ? Lowering your stress. Activities such as yoga and relaxation techniques can help. General instructions ? Pay attention to any changes in your symptoms. Tell your doctor about them or any new symptoms. ? Avoid any activities that cause chest pain. ? Keep all follow-up visits as told by your doctor. This is important. You may need more testing if your chest pain does not go away. Contact a doctor if: ? Your chest pain does not go away. ? You feel depressed. ? You have a fever. Get help right away if: ? Your chest pain is worse. ? You have a cough that gets worse, or you cough up blood. ? You have very bad (severe) pain in your belly (abdomen). ? You pass out (faint). ? You have either of these for no clear reason: ? Sudden chest discomfort. ? Sudden discomfort in your arms, back, neck, or jaw. ? You have shortness of breath at any time. ? You suddenly start to sweat, or your skin gets clammy. ? You feel sick to your stomach (nauseous). ? You throw up (vomit). ? You suddenly feel lightheaded or dizzy. ? You feel very weak or tired. ? Your heart starts to beat fast, or it feels like it is skipping beats. These symptoms may be an emergency. Do not wait to see if the symptoms will go away. Get medical help right away. Call your local emergency services (911 in the [place] Do not drive yourself to the hospital. Summary ? Chest pain can be caused by many different conditions. The cause may be serious and need treatment right away. If you have chest pain, see your doctor right away. ? Follow your doctor's instructions for taking medicines and making lifestyle changes. ? Keep all follow-up visits as told by your doctor. This includes visits for any further testing if your chest pain does not go away. ? Be sure to know the signs that show that your condition has become worse. Get help right away if you have these symptoms. This information is not intended to replace advice given to you by your health care provider. Make sure you discuss any questions you have with your health care provider. Document Revised: 04/24/2021 Document Reviewed: 04/26/2021 Elsevier Patient Education ?? 2022 [employer] Tests Performed Lab Test Name Test Result Date/Time WBC 7.8 x10^3/mcL 06/24/2023 20:48 EDT RBC 4.9 x10^6/mcL 06/24/2023 20:48 EDT Hgb 14.9 g/dL 06/24/2023 20:48 EDT Hct 42.1 % 06/24/2023 20:48 EDT MCV 86.1 fL 06/24/2023 20:48 EDT MCH 30.5 pg 06/24/2023 20:48 EDT MCHC 35.4 g/dL 06/24/2023 20:48 EDT RDW-CV 11.9 % 06/24/2023 20:48 EDT Platelets 254 x10^3/mcL 06/24/2023 20:48 EDT Neutro Auto 56.6 % 06/24/2023 20:48 EDT Lymph Auto 33.8 % 06/24/2023 20:48 EDT Hendry Auto 7.5 % 06/24/2023 20:48 EDT Eos, Auto 1.3 % 06/24/2023 20:48 EDT Basophil Auto 0.4 % 06/24/2023 20:48 EDT Imm Gran Auto 0.4 % 06/24/2023 20:48 EDT Neutro Absolute 4.4 x10^3/mcL 06/24/2023 20:48 EDT Slide Review Not Indicated 06/24/2023 20:48 EDT Sodium Level 139 mmol/L 06/24/2023 20:48 EDT Potassium Level 3.4 mmol/L 06/24/2023 20:48 EDT Chloride Level 104 mmol/L 06/24/2023 20:48 EDT CO2 18 mmol/L 06/24/2023 20:48 EDT Alk Phos 153 unit/L 06/24/2023 20:48 EDT AST 19 unit/L 06/24/2023 20:48 EDT ALT 25 unit/L 06/24/2023 20:48 EDT BUN 16 mg/dL 06/24/2023 20:48 EDT Glucose Level 155 mg/dL 06/24/2023 20:48 EDT Creatinine Level 1.11 mg/dL 06/24/2023 20:48 EDT eGFR AA 56 06/24/2023 20:48 EDT eGFR Non-AA 56 06/24/2023 20:48 EDT Calcium Level 9.3 mg/dL 06/24/2023 20:48 EDT Protein Total 6.9 g/dL 06/24/2023 20:48 EDT Albumin Level 3.5 g/dL 06/24/2023 20:48 EDT Bilirubin Total 0.7 mg/dL 06/24/2023 20:48 EDT Troponin-I 30.7 pg/mL 06/24/2023 23:48 EDT NT-proBNP 72 pg/mL 06/24/2023 20:48 EDT Patient/Ecommerce Marketing Specialist Signature Patient Name:TALISHA VILLASENOR I have received this information and my questions have been answered. Patient/Ecommerce Marketing Specialist Name: Patient/Ecommerce Marketing Specialist Signature: Relationship to Patient: Witness Name/Signature: Date: Electronically Signed on 06/25/23 12:28 AM Nathan Torrez MD Patient Care team information Care Team Personnel Name: Iraj Levin MD Position: No Access Member Role: Informed Provider Address: Address: [address] Care Team Related Persons Name: DIONISIO THOMPSON Name: ADRIANNA THOMPSON
[2023-08-14 19:15] LABS: TSH 0.04 uIU/Ml (0.36-3.74)
== END 2023-08-14 08:53 | disposition home or self-care (01) ==
LOC: NCHCN 08:52
PROVIDERS: PCP Internal Medicine; Visit Provider Internal Medicine
DX: E03.9 Hypothyroidism, unspecified (principal)
CPT/HCPCS: 84443

== ENCOUNTER 2023-09-26 15:09 | Outpatient (REF) | payer OTHER, SELFPAY ==
[2023-09-26 20:18] LABS: FREE T4 0.84 ng/dL (0.76-1.46); TSH 0.07 uIU/Ml (0.36-3.74)
== END 2023-09-26 15:10 | disposition home or self-care (01) ==
LOC: NCHCN 15:09
PROVIDERS: PCP Internal Medicine; Visit Provider Internal Medicine
DX: E03.9 Hypothyroidism, unspecified (principal)
CPT/HCPCS: 84439; 84443

== ENCOUNTER 2023-11-27 18:17 | Outpatient (REF) | payer OTHER, SELFPAY ==
[2023-11-27 20:39] LABS: TSH 0.78 uIU/Ml (0.36-3.74)
== END 2023-11-27 18:18 | disposition home or self-care (01) ==
LOC: NCHCN 18:17
PROVIDERS: PCP Internal Medicine; Visit Provider Internal Medicine
DX: E03.9 Hypothyroidism, unspecified (principal)
CPT/HCPCS: 84443

== ENCOUNTER 2024-01-02 17:30 | Outpatient (REF) | payer OTHER, SELFPAY | END 2024-01-02 17:31 | disposition home or self-care (01) | LOC: NCHCN 17:30 | PROVIDERS: PCP Internal Medicine; Visit Provider Physician Assistant | DX: N39.0 Urinary tract infection, site not specified (principal); R82.89 Other abnormal findings on cytological and histological examination of urine | CPT/HCPCS: 87077; 87086; 87186 ==

== ENCOUNTER 2024-01-21 13:44 | Outpatient (REF) | payer OTHER, SELFPAY ==
[2024-01-21 18:53] LABS: Abs Immature Grans 0.02 10^3/uL (0.0-0.06); Absolute Basophil Count 0.06 10^3/uL (0.0-0.2); Absolute Eosinophil Count 0.17 10^3/uL (0.0-0.7); Absolute Lymphocyte Count 1.88 10^3/uL (1.2-3.4); Absolute Monocyte Count 0.58 10^3/uL (0.1-0.8); Absolute Neutrophil Count 3.72 10^3/uL (1.2-6.7); Basophils % 0.9 %; Eosinophils % 2.6 %; HCT 42.8 % (36.0-46.0); HGB 14.6 g/dL (11.2-15.7); Immature Grans % 0.3 %; Lymphocytes % 29.2 %; MCH 31.3 pg (27.0-33.0); MCHC 34.1 % (32.0-36.0); MCV 92 fL (80-95); MPV 9.6 fL (8.0-11.0); Platelet Count 253 10^3/uL (130-400); RBC 4.67 10^6/uL (3.93-5.22); RDW 12.4 % (11.7-14.6); RDW-SD 41.7 fL; WBC 6.43 10^3/uL (4.4-10.8)
[2024-01-21 19:13] LABS: ALT 27 U/L (14-59); AST 20 U/L (15-37); Albumin 3.8 g/dL (3.4-5.0); Alkaline Phosphatase 127 U/L (46-116); Anion Gap 9.5 mmol/L (3-11); BUN 22 mg/dL (7-18); Bilirubin, Total 0.57 mg/dL (0.2-1.0); CO2 24.5 mmol/L (21.0-32.0); CREATININE 1.2 mg/dL (0.55-1.02); Calcium 9.2 mg/dL (8.5-10.1); Chloride 107 mmol/L (98-107); Estimated GFR 50.86 (mL/min/1.73m2); Glucose 81 mg/dL (74-106); Potassium 4.2 mmol/L (3.5-5.1); Sodium 141 mmol/L (136-145); Total Protein 7.2 g/dL (6.4-8.2)
== END 2024-01-21 13:45 | disposition home or self-care (01) ==
LOC: NCHCN 13:44
PROVIDERS: PCP Internal Medicine; Visit Provider Physician Assistant
DX: R30.0 Dysuria (principal)
CPT/HCPCS: 80053; 85025; 87086

== ENCOUNTER 2024-06-17 15:42 | Outpatient (REF) | payer OTHER, SELFPAY ==
[2024-06-17 19:47] LABS: TSH 12.11 uIU/mL (0.36-3.74)
== END 2024-06-17 15:43 | disposition home or self-care (01) ==
LOC: NCHCN 15:42
PROVIDERS: PCP Internal Medicine; Visit Provider Internal Medicine
DX: E03.9 Hypothyroidism, unspecified (principal)
CPT/HCPCS: 84443

== ENCOUNTER 2024-10-26 17:53 | Outpatient (REF) | payer OTHER, SELFPAY ==
[2024-10-26 20:02] LABS: TSH 0.36 uIU/mL (0.36-3.74)
== END 2024-10-26 17:54 | disposition home or self-care (01) ==
LOC: NCHCL 17:53
PROVIDERS: PCP Internal Medicine; Visit Provider Internal Medicine
DX: E03.8 Other specified hypothyroidism (principal)
CPT/HCPCS: 84443